=== PATIENT | male | born 1950 | race African-American/Black ===

== ENCOUNTER 2018-03-29 12:59 | Inpatient (IN) | payer BC, MEDICARE, OTHER ==
[~2018-03-29] VITALS: Ht 175.3 cm; Wt 85.6 kg
[2018-04-25] VITALS (14 sets, daily range): BP systolic 107–142; BP diastolic 52–81; PULSE 49–65; TEMP 97.5–98.9
[2018-04-25] MEDS ORDERED: CRESTOR20 MG PO (06:28)
[2018-04-25] MEDS ORDERED: GLUCOPHAGE500 MG/TAB PO (06:48)
[2018-04-25] MEDS ORDERED: MOBIC15 MG PO (06:48)
[2018-04-25] MEDS ORDERED: ULTRAM 50MG TAB50 MG PO (06:49)
[2018-04-25] MEDS ORDERED: ASPIRIN E.C. 8181 MG PO (06:49)
[2018-04-25] MEDS ORDERED: MASON NATURAL2000 IU PO (06:50)
[2018-04-25] MEDS ORDERED: ONE-A-DAY MEN'S1 TAB PO (06:50)
[2018-04-25] MEDS ORDERED: FLONASEALLERGY NS (06:51)
[2018-04-25] MEDS ORDERED: VIAGRA100 M1 PO (06:52)
[2018-04-25] MEDS ORDERED: ALLEGRA-D 24HR1 T24 PO (06:53)
[2018-04-25] MEDS ORDERED: OPCON-A 0.027%-15 M1 OP (06:53)
[2018-04-25] MEDS ORDERED: ANTI-FUNGAL1% TOP (06:55)
[2018-04-25] MEDS ORDERED: GOOD SENSE ANTI-IT1% TP (06:57)
[2018-04-25] MEDS ORDERED: NASAL MOISTURIZ45 ML NS (07:00)
[2018-04-25] MEDS ORDERED: FLOMAX 0.40.4 MG/CAP PO (07:00)
[2018-04-25] MEDS ORDERED: LACRI LUBE1 OIN OP (07:02)
[2018-04-25] MEDS ORDERED: MULTIVITAMIN SEN PO (07:06)
[2018-04-25] MEDS ORDERED: [UNRECOGNIZED DRUG - OTHER] TP (07:08)
[2018-04-26 00:20] VITALS: BP 106/63; PULSE 71; TEMP 98.9
[2018-04-26 05:01] VITALS: BP 117/69; PULSE 49; TEMP 99.8
[2018-04-26 06:17] LABS: BASO % 0.3 % (0.0-2.0); EOS % 0.1 % (0-4.0); GRAN # 6.5 (1.4-6.5); HEMOGLOBIN 10.7 g/dl (13.5-18.0); LYMPH # 2.1 (1.2-3.4); LYMPH % 21.7 % (20.0-51.0); MEAN CELL VOLUME 95 fl (80.0-100.0); MEAN CORPUSCULAR HEMOGLOBIN 31 pg (27.0-31.0); MEAN CORPUSCULAR HGB CONC 32 g/dl (33.0-37.0); MEAN PLATELET VOLUME 10.3 fl (7.4-10.4); MONO # 0.9 (0.1-0.6); MONO % 9.6 % (1.7-9.3); PLATELET COUNT 185 K/mm3 (130-400); REDCELL DISTRIBUTION WIDTH-CV 13.8 % (11.5-14.5)
[2018-04-26 06:18] LABS: HEMATOCRIT 33.4 % (42.0-52.0)
[2018-04-26 06:29] LABS: CALCIUM 8.3 mg/dL (8.4-10.2); CREATININE, serum 0.96 mg/dL (0.66-1.25); POTASSIUM 4.7 mmol/L (3.4-5.0)
[2018-04-26 08:00] VITALS: BP 107/63; PULSE 74; TEMP 98.1
[2018-04-26 11:00] VITALS: BP 121/70; PULSE 50; TEMP 98.3
[2018-04-26 16:00] VITALS: BP 131/67; PULSE 54; TEMP 98
[2018-04-26 20:33] VITALS: BP 126/68; PULSE 51; TEMP 98.5
[2018-04-27 00:15] VITALS: BP 145/76; PULSE 58; TEMP 98.2
[2018-04-27 04:39] VITALS: BP 141/66; PULSE 90; TEMP 98.1
[2018-04-27 07:48] VITALS: BP 136/71; PULSE 52; TEMP 98.2
== END 2018-04-27 12:10 | disposition home or self-care (01) | DRG 708 ==
LOC: INPTSU 04-25 05:26 → SURG 04-25 07:30
PROVIDERS: Urology
PROC: 07BC4ZX Excision of Pelvis Lymphatic, Percutaneous Endoscopic Approach, Diagnostic (ICD-10-PCS; 2018-04-25)
PROC: 8E0W4CZ Robotic Assisted Procedure of Trunk Region, Percutaneous Endoscopic Approach (ICD-10-PCS; 2018-04-25)
PROC: 0VT04ZZ Resection of Prostate, Percutaneous Endoscopic Approach (ICD-10-PCS; principal; 2018-04-25 07:30)
DX: C61 Malignant neoplasm of prostate (principal); I25.10 Atherosclerotic heart disease of native coronary artery without angina pectoris; E11.9 Type 2 diabetes mellitus without complications; I10 Essential (primary) hypertension; Z95.5 Presence of coronary angioplasty implant and graft; F17.210 Nicotine dependence, cigarettes, uncomplicated
CPT/HCPCS: A4314; A9284; C1713; J0690; J1100; J1170; J1885; J2270; J2405; J2704; J3010; J7030; J7120